=== PATIENT | female | born 1955 | race Caucasian/White ===

== ENCOUNTER 2019-05-07 09:10 | Outpatient (CLI) | payer BC, SELFPAY ==
[2019-05-07 12:02] LABS: HCT 45.2 % (36.0-46.0); HGB 15.1 g/dL (12.0-15.5); Mean Corp. HGB Concentration 33.4 g/dL (32.0-36.0); Mean Corpuscular Hemoglobin 30.3 pg (27.0-33.0); Mean Corpuscular Volume 90.8 fL (80-95); Mean Platelet Volume 10.8 fL (8.0-11.0); Platelet Count 298 x1000/uL (130-400); RBC 4.98 m/cumm (4.00-5.20); RBC Distribution Width 12.7 % (11.7-14.6); White Blood Cell Count 5.05 k/cumm (4.4-10.8)
[2019-05-07 12:11] LABS: ALT 27 U/L (12-78); AST 18 U/L (15-37); Albumin 3.6 g/dL (3.4-5.0); Alkaline Phosphatase 91 U/L (46-116); Anion Gap 8.2 mmol/L (3-11); BUN 14 mg/dL (7-18); Bilirubin, Total 0.3 mg/dL (0.2-1.0); CO2 28.8 mmol/L (21.0-32.0); CREATININE 0.94 mg/dL (0.55-1.02); Calcium 9.7 mg/dL (8.5-10.1); Calculated LDL 119; Chloride 105 mmol/L (98-107); Cholesterol 217 mg/dL (50-200); Glucose 98 mg/dL (70-100); HDL Cholesterol 60 mg/dL (40-60); Potassium 4.8 mmol/L (3.5-5.1); Sodium 142 mmol/L (136-145); Total Protein 7.1 g/dL (6.4-8.2); Triglyceride 192 mg/dL (30-150)
== END 2019-05-07 09:30 ==
PROVIDERS: PCP Family Medicine; Visit Provider Family Medicine
DX: Z00.00 Encounter for general adult medical examination without abnormal findings (principal); E66.9 Obesity, unspecified; Z13.220 Encounter for screening for lipoid disorders
CPT/HCPCS: 80053; 80061; 83721; 85027

== ENCOUNTER 2019-05-23 00:47 | Outpatient (CLI) | payer BC, SELFPAY ==
--- NOTE | 2019-05-23 08:45 | DI.MAMMO_ITS ---
SYMPTOM/DIAGNOSIS: SCREENING, Z12.31 MAMMOGRAMS: Mammograms were interpreted according to the usual protocol including computer analysis with CAD system, tomosynthesis and C view imaging. The breast tissue is of moderate radiodensity. There is no evidence of a mass. There are no suspicious calcifications and there has been no significant interval change when compared with prior images. SUMMARY: No evidence of malignancy. Category 1. Yearly screening mammography is recommended. Breast density, category B. SA ASSESSMENT OF FINDINGS: Negative. Category 1. Patient will receive a letter notifying them of these results. BI-RADS category B. There are scattered areas of fibroglandular density.
== END 2019-05-23 01:07 ==
PROVIDERS: PCP Family Medicine; Visit Provider Family Medicine
DX: Z12.31 Encounter for screening mammogram for malignant neoplasm of breast (principal)
CPT/HCPCS: 77063; 77067

== ENCOUNTER 2022-05-20 16:18 | Outpatient (REF) | payer BC, SELFPAY ==
[2022-05-20 16:34] LABS: ALT 24 U/L (14-59); AST 21 U/L (15-37); Albumin 3.6 g/dL (3.4-5.0); Alkaline Phosphatase 78 U/L (46-116); BUN 16 mg/dL (7-18); Bilirubin, Total 0.4 mg/dL (0.2-1.0); Calcium 9.5 mg/dL (8.5-10.1); Chloride 107 mmol/L (98-107); Estimated GFR 55.82 (mL/min/1.73m2); Glucose 97 mg/dL (74-106); Potassium 5.2 mmol/L (3.5-5.1); Sodium 141 mmol/L (136-145); Total Protein 7.3 g/dL (6.4-8.2)
[2022-05-20 16:55] LABS: Calculated LDL 127 mg/dL (<100); Cholesterol 218 mg/dL (<200); HDL Cholesterol 78 mg/dL (40-60); Triglyceride 65 mg/dL (<150)
[2022-05-20 17:31] LABS: Vitamin D 25 Total 95.3 ng/mL (30-100)
== END 2022-05-20 16:19 | disposition home or self-care (01) ==
LOC: NCHCN 16:18
PROVIDERS: PCP Family Medicine; Visit Provider Family Medicine
DX: Z00.00 Encounter for general adult medical examination without abnormal findings (principal); E66.9 Obesity, unspecified
CPT/HCPCS: 80053; 80061; 82306

== ENCOUNTER 2022-08-06 16:28 | Outpatient (REF) | payer BC, SELFPAY ==
--- NOTE | 2022-08-06 14:00 | PAPFT_PTH ---
PATIENT: Jane Jha LOC: [facility]#:[id number] AGE/SX: 66/F ROOM: RE08/06/[address]: Archana Garcia : 1955 BED: DIS: 08/06/2022 SPEC #: [id number] RECD: 08/06/22 18:16 STATUS: BECCA REQ #: [id number] MY: 08/06/22 14:[address]: Archana Garcia DEPT: [facility] Cytology RECD BY: Velia Brown Tissues: 1 - CX/ENDOCX FOR PAP SMEARS Procedures: PAP THIN PREP/[facility] Screening HPV DNA PROBE Comments: [id number]
== END 2022-08-06 16:29 | disposition home or self-care (01) ==
LOC: NCHCN 16:28
PROVIDERS: PCP Family Medicine; Visit Provider Family Medicine
DX: Z12.4 Encounter for screening for malignant neoplasm of cervix (principal); Z11.51 Encounter for screening for human papillomavirus (HPV)
CPT/HCPCS: 88142; 87624

== ENCOUNTER 2023-08-29 18:22 | Outpatient (REF) | payer MEDICARE, BC, SELFPAY ==
[2023-08-29 15:46] LABS: ALT 25 U/L (14-59); AST 17 U/L (15-37); Alkaline Phosphatase 84 U/L (46-116); Anion Gap 8.9 mmol/L (3-11); BUN 15 mg/dL (7-18); Bilirubin, Total 0.4 mg/dL (0.2-1.0); CO2 28.1 mmol/L (21.0-32.0); Calcium 10.4 mg/dL (8.5-10.1); Calculated LDL 163 mg/dL (<100); Chloride 106 mmol/L (98-107); Cholesterol 258 mg/dL (<200); Estimated GFR 62.52 (mL/min/1.73m2); Glucose 89 mg/dL (74-106); HDL Cholesterol 66 mg/dL (40-60); Potassium 4.7 mmol/L (3.5-5.1); Sodium 143 mmol/L (136-145); Total Protein 7.5 g/dL (6.4-8.2); Triglyceride 149 mg/dL (<150)
[2023-08-29 16:55] LABS: Vitamin D 25 Total 62.6 ng/mL (30-100)
== END 2023-08-29 18:23 | disposition home or self-care (01) ==
LOC: NCHCN 18:22
PROVIDERS: PCP Family Medicine; Visit Provider Family Medicine
DX: Z00.00 Encounter for general adult medical examination without abnormal findings (principal); E66.9 Obesity, unspecified
CPT/HCPCS: 80053; 80061; 82306